=== PATIENT | female | born 1965 | race Caucasian/White ===

== ENCOUNTER 2017-07-10 13:29 | Emergency (ER) | payer MEDICARE ==
[2017-07-10] MEDS ORDERED: KETOROLAC TROMETHAMINE 60 MG/2 ML SDV IM ONE (14:32)
[2017-07-10] MEDS ORDERED: DEXAMETHASONE SOD PHOS INJ 10 MG/1 ML VIAL IM ONE (14:32)
--- NOTE | 2017-07-10 15:15 | ER Document Report ---
ED Neck/Back Problem - General Chief Complaint: Back Pain Stated Complaint: BACK PAIN/LT ARM PAIN Time Seen by Provider: 07/10/17 14:18 Mode of Arrival: Ambulatory Information source: Patient Notes: 52-year-old female presents to ED for complaint of back pain upper back to the left. She states she woke up up with the pain 3 days ago. She states it started the night after she drove her son home from the hospital. States that the pain radiates down her left arm. She denies any M abdominal pain or chest pain. States she took 281 mg aspirins yesterday and today. States she has multiple back injuries and surgeries in the past. But none in this area. TRAVEL OUTSIDE OF THE [place] IN LAST 30 DAYS: No - HPI Patient complains to provider of: Pain, Upper back. No: Injury Onset: Other - 3 days Where: Home Onset: Sudden - Woke up with pain Timing: Still present Severity: Severe Pain Level: 5 Recent injury: No Associated symptoms: Upper back pain Exacerbated by: Movement of neck, Movement of trunk Relieved by: Nothing Similar symptoms previously: Yes Recently seen / treated by doctor: No - Related Data Allergies/Adverse Reactions: adhesive tape Allergy (Verified 07/10/17 13:42) amitriptyline Allergy (Verified 07/10/17 13:42) amoxicillin Allergy (Verified 07/10/17 13:42) azithromycin [From Zithromax] Allergy (Verified 07/10/17 13:42) cefdinir [From Omnicef] Allergy (Verified 07/10/17 13:42) cephalothin [From Seffin] Allergy (Verified 07/10/17 13:42) clarithromycin [From Biaxin] Allergy (Verified 07/10/17 13:42) clindamycin Allergy (Verified 07/10/17 13:42) doxycycline Allergy (Verified 07/10/17 13:42) estradiol [From Estrace] Allergy (Verified 07/10/17 13:42) estrogens, conjugated [From Premarin] Allergy (Verified 07/10/17 13:42) fenofibrate [From Antara] Allergy (Verified 07/10/17 13:42) gabapentin Allergy (Verified 07/10/17 13:42) morphine Allergy (Verified 07/10/17 13:42) sulfamethoxazole [From Bactrim] Allergy (Verified 07/10/17 13:42) tizanidine Allergy (Verified 07/10/17 13:42) trimethoprim [From Bactrim] Allergy (Verified 07/10/17 13:42) steroids Allergy (Uncoded 07/10/17 13:42) Past Medical History - General Information source: Patient - Social History Smoking Status: Never Smoker Cigarette use (# per day): No Chew tobacco use (# tins/day): No Smoking Education Provided: No Frequency of alcohol use: None Drug Abuse: None Lives with: Family Family History: Reviewed & Not Pertinent Patient has suicidal ideation: No Patient has homicidal ideation: No - Past Medical History Cardiac Medical History: Reports: None Pulmonary Medical History: Reports: Hx Bronchitis EENT Medical History: Reports: None Neurological Medical History: Reports: None Endocrine Medical History: Reports: None Renal/ Medical History: Reports: None Malignancy Medical History: Reports: None GI Medical History: Reports: None Musculoskeltal Medical History: Reports Hx Arthritis, Reports Hx Multiple Sclerosis, Reports Hx Musculoskeletal Deformity, Reports Hx Musculoskeletal Trauma Skin Medical History: Reports None Traumatic Medical History: Reports: Hx Fractures, Other - Multiple ruptured disc Infectious Medical History: Reports: None Past Surgical History: Reports: Hx Appendectomy, Hx Cholecystectomy, Hx Genitourinary Surgery - Bladder sling, Hx Hysterectomy, Hx Orthopedic Surgery - Neck surgery 2 low back surgery 1 shoulder surgery right ankle surgery - Immunizations Immunizations up to date: Yes Hx Diphtheria, Pertussis, Tetanus Vaccination: Yes - 2016 History of Influenza Vaccine for 06/2017 - 11/2017 Season: Yes - May 2017 Review of Systems - Review of Systems Constitutional: No symptoms reported EENT: No symptoms reported Cardiovascular: No symptoms reported Respiratory: No symptoms reported Gastrointestinal: No symptoms reported Genitourinary: No symptoms reported Female Genitourinary: No symptoms reported Musculoskeletal: Muscle pain - Left upper back latissimus dorsi, Muscle stiffness Skin: No symptoms reported Hematologic/Lymphatic: No symptoms reported Neurological/Psychological: No symptoms reported Physical Exam - Vital signs Vitals: Temp Pulse Resp BP Pulse Ox 98.1 F 86 16 132/63 H 100 07/10/17 13:32 07/10/17 13:32 07/10/17 13:32 07/10/17 13:32 07/10/17 13:32 Interpretation: Normal - General General appearance: Appears well, Alert - HEENT Head: Normocephalic, Atraumatic Eyes: Normal Pupils: PERRL - Respiratory Respiratory status: No respiratory distress Chest status: Nontender Breath sounds: Normal Chest palpation: Normal - Cardiovascular Rhythm: Regular Heart sounds: Normal auscultation Murmur: No - Abdominal Inspection: Normal Distension: No distension Bowel sounds: Normal Tenderness: Nontender Organomegaly: No organomegaly - Back Back: Normal, Tender, Scars, Other - Latissimus dorsi. No: Deformity/step-off, CVA tenderness, Vertebra tenderness, Scoliosis, Wounds - Extremities General upper extremity: Normal inspection, Nontender, Normal color, Normal ROM , Normal temperature General lower extremity: Normal inspection, Nontender, Normal color, Normal ROM , Normal temperature, Normal weight bearing. No: Elaina's sign - Neurological Neuro grossly intact: Yes Cognition: Normal Orientation: AAOx4 Kathleen Coma Scale Eye Opening: Spontaneous [place] Coma Scale Verbal: Oriented Kathleen Coma Scale Motor: Obeys Commands Kathleen Coma Scale Total: 15 Speech: Normal Motor strength normal: LUE, RUE, LLE, RLE Sensory: Normal - Psychological Associated symptoms: Normal affect, Normal mood - Skin Skin Temperature: Warm Skin Moisture: Dry Skin Color: Normal Course - Re-evaluation Re-evalutation: 07/10/17 15:30 Patient was treated with Toradol and Decadron IM dated she had some relief. Patient was given instructions on exercises ice warm packs and use of ibuprofen for pain. Patient is from [place] and plans to go back in July. She will follow-up with her primary doctor there. I gave her a list of the local doctors if she needs a doctor in the area. - Vital Signs Vital signs: Temp Pulse Resp BP Pulse Ox 98.1 F 86 16 132/63 H 100 07/10/17 13:32 07/10/17 13:32 07/10/17 13:32 07/10/17 13:32 07/10/17 13:32 Discharge - Discharge Clinical Impression: Upper back pain on left side Condition: Stable Disposition: HOME, SELF-CARE Instructions: Family Physicians / Practices, Range of Motion Exercises ([facility]), Exercise Program for the Shoulder ([facility]) Additional Instructions: You were seen today for pain between your shoulder blade radiating to your left arm. He states she woke up this way 3 days ago after driving your son to a doctor appointment. Your pain is located in your muscle of your back on the left side. This is caused by muscle strain or irritation to the muscle. MUSCLE STRAIN: You have strained a muscle -- torn the fibers within the muscle. This often occurs with strenuous exertion, or during an injury that suddenly stretches the muscle. The seriousness of a strain varies. Some strains heal within days, others cause problems for months. X-rays cannot show a muscle strain. X-rays are taken only if symptoms suggest that a fracture could be present. The usual treatment of a muscle strain is rest and ice packs. Sometimes, a sling, splint, or crutches may be necessary to rest the muscle. The muscle can be used again once pain subsides. Severe strains require a special exercise and stretching program to prevent permanent stiffness and disability. Your doctor will advise you if this will be necessary. Call the doctor immediately if pain or swelling becomes severe, or if numbness or discoloration develop. USE OF TYLENOL (ACETAMINOPHEN): Acetaminophen may be taken for pain relief or fever control. It's much safer than aspirin, offering a wider range of "safe" dosages. It is safe during . Some brand names are Tylenol, Panadol, Datril, Anacin 3, Tempra, and Liquiprin. Acetaminophen can be repeated every four hours. The following are maximum recommended dosages: WEIGHT Dose Drops Elixir Chewable( 80mg) (LBS.) drprs=droppers tsp=teaspoon 6 40 mg 0.4 ml (1/2) 6-11 80 mg 0.8 ml (full) tsp 1 tab 12-16 120 mg 1 1/2 drprs 3/4 tsp 1 1/2 tabs 17-23 160 mg 2 drprs 1 tsp 2 tabs 24-30 240 mg 3 drprs 1 1/2 tsp 3 tabs 30-35 320 mg 2 tsp 4 tabs 36-41 360 mg 2 1/4 tsp 4 1/2 tabs 42-47 400 mg 2 1/2 tsp 5 tabs 48-53 480 mg 3 tsp 6 tabs 54-59 520 mg 3 1/4 tsp 6 1/2 tabs 60-64 560 mg 3 1/2 tsp 7 tabs 65-70 600 mg 3 3/4 tsp 7 1/2 tabs 71-76 640 mg 4 tsp 8 tabs 77-82 720 mg 4 1/2 tsp 9 tabs 83-88 800 mg 5 tsp 10 tabs >89 pounds or adults 650 mg to 900 mg Acetaminophen can be repeated every four hours. Maximum dose not to exceed 4000 mg a day. These maximum recommended dosages are slightly higher than the dosages written on the product container, but these dosages are very safe and below the toxic dosage for acetaminophen. NON-SUTURED LACERATION: Your laceration did not require suturing. Some lacerations cannot be sutured because of increased infection risk, while others simply don't need stitches because they are shallow or very short. Your injury should be protected while it heals. Usually complete healing takes 10 to 14 days. Keep the dressing clean and dry, and change it every day. If you notice increasing pain, redness, swelling, drainage, or tender lumps in the armpit or groin above the injury, infection may be present. You should call the doctor at once. ICE PACKS: Apply ice packs frequently against the painful area. Many different schedules are recommended, such as "20 minutes on, 20 minutes off" or "one hour ice, two hours rest." If you need to work, you may need to go longer between ice treatments. You should plan to have the area ice packed AT LEAST one fourth of the time. The ice should be applied over the wrap, tape, or splint, or over a layer of cloth -- not directly against the skin. Some ice bags have a built-in cloth and can be put directly on the skin. WARM PACKS: After approximately two days, apply gentle heat (such as a heating pad or hot water bottle) for about 20 to 30 minutes about every two hours -- at least four times daily. Warmth and elevation will help you make a more rapid recovery , and will ease the pain considerably. Do not use HOT heat, and never apply heat for longer than 30 minutes. The continuous heat can invisibly damage skin and muscles -- even when no burn is seen on the surface. Damaged muscles can make you MORE sore. USE OF [id number] IBUPROFEN: Ibuprofen (Advil, Nuprin, Medipren, Motrin IB) is a medication for fever and pain control. In addition, it has anti- inflammatory effects which may be beneficial, especially in the treatment of injuries. It's best to take ibuprofen with food. Persons with ulcer disease or allergy to aspirin should notify their physician of this before taking ibuprofen. Ibuprofen can be given every four to six hours, for a total of four doses daily. Age Pain or fever dose Antiinflammatory dose 6-8 yr 200 mg (1 tab) 200 mg (1 tab) 9-11 yr 200 mg (1 tab) 200-400 mg (1-2 tab) 11-14 yr 200-400 mg (1-2 tab) 400 mg (2 tab) 15-adult 400 mg (2 tab) 600 mg (3 tab) STEROID MEDICATION: You have been given an injection of medicine of the cortisone/steroid class. This medication is used to control inflammation or allergy. It is often continued as a pill for a short period of time, until the acute process subsides. There are usually no side effects from short-term use of cortisone-like medications. Some persons feel an increased sense of well-being and are not sleepy at bedtime. Long-term use of cortisone medications is best avoided, unless required for a severe condition. If your condition does not remit, or relapses after the course of corticosteroid medication, you should consult your physician. FOLLOW-UP CARE: If you have been referred to a physician for follow-up care, call the physician s office for an appointment as you were instructed or within the next two days. If you experience worsening or a significant change in your symptoms, notify the physician immediately or return to the Emergency Department at any time for re-evaluation. Prescriptions: Ibuprofen 600 mg PO Q6HP PRN #14 tablet PRN Reason: Forms: Elevated Blood Pressure
[2017-07-10 15:27] VITALS: BP 128/60
== END 2017-07-10 15:27 | disposition home or self-care (01) ==
LOC: ER 13:29
DX: M54.89 Other dorsalgia (principal); Z98.890 Other specified postprocedural states; Z87.828 Personal history of other (healed) physical injury and trauma; Z91.048 Other nonmedicinal substance allergy status; Z88.0 Allergy status to penicillin; Z88.8 Allergy status to other drugs, medicaments and biological substances; Z88.1 Allergy status to other antibiotic agents; Z88.6 Allergy status to analgesic agent
CPT/HCPCS: 99283; 96372; J1885; J1100

== ENCOUNTER 2017-07-14 12:36 | Emergency (ER) | payer MEDICARE ==
--- NOTE | 2017-07-14 13:45 | RADIOLOGY REPORT (SQ) ---
EXAM DESCRIPTION: CHEST PA/LAT COMPLETED DATE/TIME: 07/14/2017 1:24 pm REASON FOR STUDY: pain COMPARISON: None. EXAM PARAMETERS: NUMBER OF VIEWS: two views TECHNIQUE: Digital Frontal and Lateral radiographic views of the chest acquired. RADIATION DOSE: NA LIMITATIONS: none FINDINGS: LUNGS AND PLEURA: No opacities, masses or pneumothorax. No pleural effusion. MEDIASTINUM AND HILAR STRUCTURES: No masses or contour abnormalities. HEART AND VASCULAR STRUCTURES: Moderate cardiomegaly BONES: Convex leftward upper thoracic curvature HARDWARE: Clips right upper quadrant post cholecystectomy. Lower cervical discectomy and fusion OTHER: No other significant finding. IMPRESSION: No acute infiltrates Moderate cardiomegaly TECHNICAL DOCUMENTATION: JOB ID: [id number]- All Rights Reserved
--- NOTE | 2017-07-14 14:11 | ER Document Report ---
ED General - General Chief Complaint: Back Pain Stated Complaint: BACK,SHOULDER,ARM PAIN Time Seen by Provider: 07/14/17 13:14 Mode of Arrival: Ambulatory Information source: Patient Notes: Patient was seen here several days ago for left upper back and shoulder pain. At that time she was prescribed nonnarcotic medication. She states this is not working for the pain. Patient states that she feels also occasionally like some food sticks when she swallows. She is also a mild cough. She states this pain is constant and moderate. It radiates to her left arm. It is worse with movement and better with rest. She denies any known injuries or trauma. No rashes. No swelling of the arm. TRAVEL OUTSIDE OF THE [place] IN LAST 30 DAYS: No - Related Data Allergies/Adverse Reactions: adhesive tape Allergy (Verified 07/10/17 13:42) amitriptyline Allergy (Verified 07/10/17 13:42) amoxicillin Allergy (Verified 07/10/17 13:42) azithromycin [From Zithromax] Allergy (Verified 07/10/17 13:42) cefdinir [From Omnicef] Allergy (Verified 07/10/17 13:42) cephalothin [From Seffin] Allergy (Verified 07/10/17 13:42) clarithromycin [From Biaxin] Allergy (Verified 07/10/17 13:42) clindamycin Allergy (Verified 07/10/17 13:42) doxycycline Allergy (Verified 07/10/17 13:42) estradiol [From Estrace] Allergy (Verified 07/10/17 13:42) estrogens, conjugated [From Premarin] Allergy (Verified 07/10/17 13:42) fenofibrate [From Antara] Allergy (Verified 07/10/17 13:42) gabapentin Allergy (Verified 07/10/17 13:42) morphine Allergy (Verified 07/10/17 13:42) sulfamethoxazole [From Bactrim] Allergy (Verified 07/10/17 13:42) tizanidine Allergy (Verified 07/10/17 13:42) trimethoprim [From Bactrim] Allergy (Verified 07/10/17 13:42) steroid Allergy (Uncoded 07/14/17 12:45) steroids Allergy (Uncoded 07/10/17 13:42) Past Medical History - General Information source: Patient - Social History Smoking Status: Never Smoker Chew tobacco use (# tins/day): No Frequency of alcohol use: None Drug Abuse: None Family History: Reviewed & Not Pertinent Pulmonary Medical History: Reports: Hx Bronchitis Renal/ Medical History: Denies: Hx Peritoneal Dialysis Musculoskeltal Medical History: Reports Hx Arthritis, Reports Hx Multiple Sclerosis, Reports Hx Musculoskeletal Deformity, Reports Hx Musculoskeletal Trauma Traumatic Medical History: Reports: Hx Fractures Past Surgical History: Reports: Hx Appendectomy, Hx Cholecystectomy, Hx Genitourinary Surgery - Bladder sling, Hx Hysterectomy, Hx Orthopedic Surgery - Neck surgery 2 low back surgery 1 shoulder surgery right ankle surgery - Immunizations Immunizations up to date: Yes Hx Diphtheria, Pertussis, Tetanus Vaccination: Yes - 2017 Review of Systems - Review of Systems Constitutional: denies: Chills, Fever Cardiovascular: denies: Chest pain, Palpitations Respiratory: Cough. denies: Short of breath -: Yes All other systems reviewed and negative Physical Exam - Vital signs Vitals: Temp Pulse BP Pulse Ox 98.3 F 85 133/65 H 95 07/14/17 12:40 07/14/17 12:40 07/14/17 12:40 07/14/17 12:40 Interpretation: Normal - General General appearance: Appears well, Alert - HEENT Head: Normocephalic, Atraumatic Eyes: Normal Pupils: PERRL - Respiratory Respiratory status: No respiratory distress Chest status: Nontender Breath sounds: Normal Chest palpation: Normal - Cardiovascular Rhythm: Regular Heart sounds: Normal auscultation Murmur: No - Abdominal Inspection: Normal Distension: No distension Bowel sounds: Normal Tenderness: Nontender Organomegaly: No organomegaly - Back Back: Tender - There is some mild tenderness to palpation of the left area. Inspection is unremarkable. - Extremities General upper extremity: Normal inspection, Nontender, Normal color, Normal ROM , Normal temperature General lower extremity: Normal inspection, Nontender, Normal color, Normal ROM , Normal temperature, Normal weight bearing. No: Elaina's sign - Neurological Neuro grossly intact: Yes Cognition: Normal Orientation: AAOx4 Kathleen Coma Scale Eye Opening: Spontaneous [place] Coma Scale Verbal: Oriented [place] Coma Scale Motor: Obeys Commands [place] Coma Scale Total: 15 Speech: Normal Motor strength normal: LUE, RUE, LLE, RLE Sensory: Normal - Psychological Associated symptoms: Normal affect, Normal mood - Skin Skin Temperature: Warm Skin Moisture: Dry Skin Color: Normal Course - Vital Signs Vital signs: Temp Pulse Resp BP Pulse Ox 98.3 F 85 133/65 H 95 07/14/17 12:40 07/14/17 12:40 07/14/17 12:40 07/14/17 12:40 - Diagnostic Test Radiology reviewed: Image reviewed, Reports reviewed - No acute pathology on chest x-ray. Discharge - Discharge Clinical Impression: Upper back pain on left side Condition: Stable Disposition: HOME, SELF-CARE Instructions: Muscle Strain ([facility]), Oral Narcotic Medication ([facility]) Additional Instructions: Please call your primary care physician as soon as possible to arrange follow-up Prescriptions: Hydrocodone/Acetaminophen [[place] 5-325 mg Tablet] 1 tab PO Q6 PRN #10 tablet PRN Reason: Forms: Elevated Blood Pressure
[2017-07-14] MEDS ORDERED: KETOROLAC TROMETHAMINE 60 MG/2 ML SDV IM ONE (14:34)
[2017-07-14 15:24] LABS: ALANINE AMINOTRANSFERASE 63 U/L (9-52); ALBUMIN 4.6 g/dL (3.5-5.0); ALKALINE PHOSPHATASE 112 U/L (38-126); ANION GAP 13 (5-19); ASPARTATE AMINO TRANSFERASE 44 U/L (14-36); BILIRUBIN,DIRECT 0.4 mg/dL (0.0-0.4); BILIRUBIN,TOTAL 0.5 mg/dL (0.2-1.3); BLOOD UREA NITROGEN 16 mg/dL (7-20); CALCIUM 9.5 mg/dL (8.4-10.2); CARBON DIOXIDE 29 mmol/L (22-30); CHLORIDE 101 mmol/L (98-107); CREATININE RESULT 0.93 mg/dL (0.52-1.25); GLUCOSE 100 mg/dL (75-110); POTASSIUM 4.5 mmol/L (3.6-5.0); SODIUM 142.8 mmol/L (137-145); TOTAL PROTEIN 7.8 g/dL (6.3-8.2)
[2017-07-14 16:20] LABS: ABSOLUTE EOSINOPHILS # (AUTO) 0.3 10^3/uL (0.0-0.6); ABSOLUTE LYMPHOCYTES (AUTO) 1.3 10^3/uL (0.5-4.7); ABSOLUTE MONOCYTES (AUTO) 0.5 10^3/uL (0.1-1.4); ABSOLUTE NEUT (AUTO) 2.8 10^3/uL (1.7-8.2); BASOPHILS % (AUTO) 0.6 % (0-2); EOSINOPHILS % (AUTO) 5.4 % (0-6); HEMATOCRIT 40.6 % (36.0-47.0); HEMOGLOBIN 13.9 g/dL (12.0-15.5); HGB HCT DIFFERENCE 1.1; LYMPHOCYTES % (AUTO) 27.4 % (13-45); MEAN CORPUSCULAR HEMOGLOBIN 30.6 pg (27.0-33.4); MEAN CORPUSCULAR HGB CONC 34.3 g/dL (32.0-36.0); MEAN CORPUSCULAR VOLUME 89 fl (80-97); MONOCYTES % (AUTO) 10.1 % (3-13); RED BLOOD COUNT 4.56 10^6/uL (3.72-5.28); RED CELL DISTRIBUTION WIDTH 13.9 % (11.5-14.0); SEGMENTED NEUTROPHILS % (AUTO) 56.5 % (42-78); WHITE BLOOD COUNT 4.9 10^3/uL (4.0-10.5)
--- NOTE | 2017-07-14 16:24 | EKG REPORT ---
SEVERITY:- NORMAL ECG - SINUS RHYTHM : Confirmed by: Liv Forbes 14-Jul-2017 16:23:30
[2017-07-14 16:29] VITALS: BP 124/64
== END 2017-07-14 16:29 | disposition home or self-care (01) ==
LOC: ER 12:36
DX: M54.89 Other dorsalgia (principal); R05 Cough; R09.89 Other specified symptoms and signs involving the circulatory and respiratory systems; Z91.048 Other nonmedicinal substance allergy status; Z88.0 Allergy status to penicillin; Z88.1 Allergy status to other antibiotic agents; Z88.8 Allergy status to other drugs, medicaments and biological substances; Z88.5 Allergy status to narcotic agent; Z88.6 Allergy status to analgesic agent
CPT/HCPCS: 93005; 99284; 96372; 36415; 85025; 80053; 84484; 71020; 93010; J1885